=== PATIENT | male | born 1935 | race Caucasian/White ===

== ENCOUNTER 2016-05-29 08:15 | Inpatient (IN) | payer OTHER ==
[~2016-05-29] VITALS: Ht 190.5 cm; Wt 109.8 kg
--- NOTE | 2016-05-29 09:27 | ED NURSING NOTES ---
Clinical Report - Nurses [facility] [address] [place] [address] 05/29/2016 8:19 [id number] Triage time 08:25. Acuity: LEVEL 3. Chief Complaint: FALL while walking; tripped (Left Hip). 08:27 05/29/16. 08:27 05/29/16. Alert. No acute distress. SEPSIS SCREEN: Sepsis Screen. Negative (no infection suspected/documented). NICK COMA SCORE: [place] Coma Scale: 15- eyes open spontaneously (4); best verbal response- oriented x 4 (5); best motor response- obeys commands (6). --08:33 Jv Morrow R.N. 08:30 05/29/16. BP: 157/75. HR: 92. RR: 18. O2 saturation: 97% on room air. Temp: 98.1 F (oral). Pain level now: 06/01. --08:33 Jv Morrow R.N. Weight: 113.3 kg stated. Height/Length: 75 inches Per Patient. BMI: 31.2. --08:28 Jv Morrow R.N. Medications Atenolol Oral 25 mg, 3x a day. Lisinopril Oral 5 mg, daily, 4 tabs by mouth daily. --08:33 Jv Morrow R.N. Aleve. ASA Oral 325 mg PO q day. Tamsulosin HCl Oral 0.4 mg, 2x a day. --08:33 Jv Morrow R.N. Furosemide Oral 60mg, daily. --09:40 Jv Morrow R.N. Vitamin D3 Oral (Tablet 1000 unit) 2 tablets, daily, 2000 units daily. --09:41 Jv Morrow R.N. Vitamin E Oral (Capsule 400 unit) 1 capsule, daily. --09:44 Jv Morrow R.N. The following entry was struck and corrected by Jv Morrow R.N., 09:40 (05/29/16) Reason for correction - other(correction). <<STRICKEN ENTRY-- Lisinopril Oral 5 mg, daily. --08:33 Jv Morrow R.N. --END STRIKE>> The following entry was struck and corrected by Jv Morrow R.N., 09:40 (05/29/16) Reason for correction - other(correction). <<STRICKEN ENTRY-- Atenolol Oral 25 mg, daily. --08:33 Jv Morrow R.N. --END STRIKE>>. Medication/allergy information source: the patient and EMS. --08:33 Jv Morrow R.N. Allergies Lorazepam. (Hallucinations) --09:52 Jv Morrow R.N. The following entry was struck by Jv Morrow R.N., 09:53 (05/29/16) Reason - other. <<STRICKEN ENTRY-- Anti anx. pill caused halluciations. --08:33 Jv Morrow R.N. --END STRIKE>>. History Arrived by EMS. Historian: patient. Unaccompanied. Primary physician (FERNANDO ESCOTO). 08:27 05/29/16. This occurred yesterday. He has had extremity pain (Left hip pain). No loss of consciousness. No alteration in mental status or neck pain. Treatment BILL POSTER INSTALLER: None. Trauma activation: Pre-hospital notification of patient arrival was not received. PAST MEDICAL HX: Tetanus status: up-to-date. Immunizations not up to date. SOCIAL HX: No alcohol use or drug use. No infectious disease exposure. ABUSE ASSESSMENT: No report of abuse. NUTRITIONAL RISK ASSESSMENT: The nutritional risk assessment revealed no deficiencies. FUNCTIONAL ASSESSMENT: Functional assessment: no impairments noted. LEARNING NEEDS ASSESSMENT: The learning needs assessment revealed no barriers. FALL RISK ASSESSMENT: Fall risk assessment completed. Risk factors identified include severe pain and patient age greater than 65 years and history of fall. Fall interventions initiated. Side rails up x2. Brakes on Bed in low position. Patient visible from nurses' station. SKIN INTEGRITY ASSESSMENT: Skin integrity risk assessment completed. No skin integrity risk identified. --08:33 Jv Morrow R.N. Treatment BILL POSTER INSTALLER: See EMS report. BP: 150 / 86. HR: 82 regular. RR: 18. O2 saturation: 96 % room air. 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 Lives in house with . History of right hip fracture.). NICK COMA SCORE: [place] Coma Scale: 15- eyes open spontaneously (4); best verbal response- oriented x 4 (5); best motor response- obeys commands (6). --08:44 Jv Morrow R.N. PROBLEMS: Arthritis. Atrial Fibrillation. Meniere's Syndrome. Hypokalemia. Hypertension. Hypernatremia. ELEM. --08:33 Jv Morrow R.N. CKD. Fatty Liver. Deaf. Right Femoral Neck fracture. Venous Insufficiency, Lower Extremity. PVD. --09:53 Jv Morrow R.N. ADDITIONAL SURGERIES: Hip Surgery. Knee Prosthesis. Knee Surgery. Left index finger partial amputation. Mastoidectomy. Right hip. Right knee. --08:34 Jv Morrow R.N. Right Cornea Transplant. --09:53 Jv Morrow R.N. Assessment 08:27 05/29/16. --08:33 Jv Morrow R.N. Interventions 08:27 05/29/16. 08:27 05/29/16. ID and allergy band on patient. To treatment room. --08:33 Jv Morrow R.N. PHYSICAL ASSESSMENT To room via stretcher. GENERAL / NEURO / PSYCH: Alert. Oriented X 4. Appears in pain. RESPIRATORY: Respirations not labored. CVS: Capillary refill less than 2 seconds. EXTREMITIES: Extremity pulses are within normal limits. Left hip: tenderness. ( No deformity noted left LE). SKIN: Skin is warm and dry. --08:34 Jv Morrow R.N. NURSING PROGRESS NOTES 08:34 05/29/16. The plan of care for this patient has been created. Cold pack applied. Patient gowned. Reassurance given. Two patient identifiers checked. Call light placed in reach. Side rails up x 2. Bed placed in lowest position. Brakes of bed on. Brakes of chair on. --08:34 Jv Morrow R.N. 08:34 05/29/16. Patient ready for evaluation- chart flagged and notification provided. --08:34 Jv Morrow R.N. 08:41 05/29/2016 Percocet (Oxycodone-Acetaminophen) PO 5/325 mg Tablets 1 tab given. Allergies verified, confirmed 5 rights and sedative warning given to the patient. --08:41 Jv Morrow R.N. 08:42 05/29/16. BP: 160/80. HR: 78. RR: 12. O2 saturation: 99% on room air. --08:42 Jv Morrow R.N. 08:42 05/29/16. --08:42 Jv Morrow R.N. 08:42 05/29/16. ( Assisted pt to void, 250 mLs lea urine). --08:42 Jv Morrow R.N. 08:43 05/29/16. Patient ID band checked for patient name and birthdate. Clean catch urine collected with return of lea-colored urine; sample sent to lab for urinalysis and culture. Specimen labeled in the presence of the patient. --08:43 Jv Morrow R.N. 08:49 05/29/16. ( Office to fax current meds to ER). --08:50 Jv Morrow R.N. 09:13 05/29/2016 Site #1 started via IV in the right antecubital space with an 18g angiocath, with aseptic technique and good blood return; one attempt. Blood drawn: rainbow set. Labeled in the presence of the patient and sent to the lab. Saline lock flushed with 10 mL saline (blood banded as well). --09:13 Jv Morrow R.N. 09:31 05/29/16. Critical value relayed to ED by Slim. Critical value received by Jv Morrow RN. WBC: 30.3. ED physician and charge nurse notifed of critical value. --09:31 Jv Morrow R.N. 09:32 05/29/16. ( Dr Jiménez and FRANKY MD at bedside talking with patient). --09:32 Jv Morrow R.N. 09:32 05/29/16. --09:32 Jv Morrow R.N. 09:32 05/29/16. BP: 148/78. HR: 80. RR: 16. O2 saturation: 98% on room air. --09:32 Jv Morrow R.N. 10:17 05/29/16. --10:17 Jv Morrow R.N. 10:16 05/29/16. BP: 155/72. HR: 82. RR: 14. O2 saturation: 98% on room air. Temp: 98.1 F (oral). --10:17 Jv Morrow R.N. 10:20 05/29/16. ( Bed will be ready at 1120, room 205). --10:20 Jv Morrow R.N. 11:29 05/29/16. ( Ortho MD at bedside, at bedside, updated on POC and pts status). --11:29 Jv Morrow R.N. DISPOSITION / DISCHARGE 10:20 05/29/16. Patient's personal items include, pants, shirt, no money, no weapons, no meds. --10:20 Jv Morrow R.N. 11:24 05/29/2016 Site #[address] upon admission; patent and no signs of infection. Good blood return present. --11:24 Jv Morrow R.N. 11:25 05/29/16. The goals identified in the patient's plan of care were met. FALL RISK ASSESSMENT: Fall risk assessment completed. No fall risk identified. --11:25 Jv Morrow R.N. 11:24 05/29/16. BP: 146/78. HR: 81. RR: 14. O2 saturation: 99% on room air. Temp: 98.2 F (oral). Pain level now: 07/02. --11:25 Jv Morrow R.N. 11:56 05/29/16. Departure time: 11:56. --11:56 Jv Morrow R.N. late entry -11:56. --12:16 Jv Morrow R.N. 12:16 05/29/16. Pain level now: 07/02. --12:16 Jv Morrow R.N. Locked/Released at 05/29/2016 12:17 by Jv Morrow R.N.
--- NOTE | 2016-05-29 09:27 | ED ORDER SUMMARY ---
..... Patient: GISELLE SESAY OrderSheet [facility] VisitID: [id number] [address] [place] [address] 80y, M Registration Date/Time: 05/29/2016 ORDER SHEET Weight: 113.3 kg (stated) Allergies: Lorazepam GENERAL ORDERS: Hip 2V Left w AP Pelvis Urgent (08:30 05/29/2016 Mali Lujan) (Ack 8:32 Jimmie) (9:12 JBoardley R.N.) UA-Culture if indicated Urgent (08:43 05/29/2016 JBoardley R.N. per protocol) (8:45 JBoardley R.N.) CBC w Diff Urgent (09:04 05/29/2016 Mali Lujan) (9:12 JBoardley R.N.) CMP Urgent (09:04 05/29/2016 Mali Lujan) (9:12 JBoardley R.N.) NPO (09:04 05/29/2016 Mali Lujan) (9:12 JBoardley R.N.) Consult - Ortho (09:04 05/29/2016 Mali Lujan) (9:14 JBoardley R.N.) PT with INR Urgent (09:12 05/29/2016 JBoardley R.N. per protocol) (9:12 JBoardley R.N.) PTT Urgent (09:12 05/29/2016 JBoardley R.N. per protocol) (9:12 JBoardley R.N.) - (SCD's Bilat LE) (09:17 05/29/2016 JBoardley R.N. per protocol) (9:17 JBoardley R.N.) MEDICATION ORDERS: Percocet PO 5/325 mg (HIGH ALERT MEDICATION, NOW) (08:29 05/29/2016 Mali Lujan) (Ack 8:34 JBoardley R.N.) (8:41 JBoardley R.N.) IV FLUIDS: IV Saline Lock (09:12 05/29/2016 SHARIFAoarrosaura R.N. per protocol) (9:13 JBoardley R.N.) ORDER SHEET NOTES: [Electronically signed by Jv Morrow R.N. (12:05/29/2016)] [Electronically signed by Calixto Low Dr. (07:06 06/03/2016)] [Electronically locked/signed by Jv Morrow R.N. (12:05/29/2016)]
--- NOTE | 2016-05-29 09:27 | ED ORDER SUMMARY ---
..... Patient: GISELLE SESAY OrderSheet VisitID: [id number] [address] [place] [address] 80y, M Registration Date/Time: 05/29/2016 ORDER SHEET Weight: 113.3 kg (stated) Allergies: Lorazepam GENERAL ORDERS: Hip 2V Left w AP Pelvis Urgent (08:30 05/29/2016 Mali Lujan) (Ack 8:32 Jimmie) (9:12 JBoardley R.N.) UA-Culture if indicated Urgent (08:43 05/29/2016 JBoardley R.N. per protocol) (8:45 JBoardley R.N.) CBC w Diff Urgent (09:04 05/29/2016 Mali Lujan) (9:12 JBoardley R.N.) CMP Urgent (09:04 05/29/2016 Mali Lujan) (9:12 JBoardley R.N.) NPO (09:04 05/29/2016 Mali Lujan) (9:12 JBoardley R.N.) Consult - Ortho (09:04 05/29/2016 Mali Lujan) (9:14 JBoardley R.N.) PT with INR Urgent (09:12 05/29/2016 JBoardley R.N. per protocol) (9:12 JBoardley R.N.) PTT Urgent (09:12 05/29/2016 JBoardley R.N. per protocol) (9:12 JBoardley R.N.) - (SCD's Bilat LE) (09:17 05/29/2016 JBoardley R.N. per protocol) (9:17 JBoardley R.N.) MEDICATION ORDERS: Percocet PO 5/325 mg (HIGH ALERT MEDICATION, NOW) (08:29 05/29/2016 Mali Lujan) (Ack 8:34 JBoardley R.N.) (8:41 JBoardley R.N.) IV FLUIDS: IV Saline Lock (09:12 05/29/2016 SHARIFAoarrosaura R.N. per protocol) (9:13 JBoardley R.N.) ORDER SHEET NOTES: [Electronically signed by Jv Morrow R.N. (12:05/29/2016)] [Electronically signed by Calixto Low Dr. (07:06 06/03/2016)] [Electronically locked/signed by Jv Morrow R.N. (12:05/29/2016)]
--- NOTE | 2016-05-29 09:27 | ED NURSING NOTES ---
Clinical Report - Nurses [facility] [address] [place] [address] 05/29/2016 8:19 [id number] Triage time 08:25. Acuity: LEVEL 3. Chief Complaint: FALL while walking; tripped (Left Hip). 08:27 05/29/16. 08:27 05/29/16. Alert. No acute distress. SEPSIS SCREEN: Sepsis Screen. Negative (no infection suspected/documented). NICK COMA SCORE: [place] Coma Scale: 15- eyes open spontaneously (4); best verbal response- oriented x 4 (5); best motor response- obeys commands (6). --08:33 Jv Morrow R.N. 08:30 05/29/16. BP: 157/75. HR: 92. RR: 18. O2 saturation: 97% on room air. Temp: 98.1 F (oral). Pain level now: 06/01. --08:33 Jv Morrow R.N. Weight: 113.3 kg stated. Height/Length: 75 inches Per Patient. BMI: 31.2. --08:28 Jv Morrow R.N. Medications Atenolol Oral 25 mg, 3x a day. Lisinopril Oral 5 mg, daily, 4 tabs by mouth daily. --08:33 Jv Morrow R.N. Aleve. ASA Oral 325 mg PO q day. Tamsulosin HCl Oral 0.4 mg, 2x a day. --08:33 Jv Morrow R.N. Furosemide Oral 60mg, daily. --09:40 Jv Morrow R.N. Vitamin D3 Oral (Tablet 1000 unit) 2 tablets, daily, 2000 units daily. --09:41 Jv Morrow R.N. Vitamin E Oral (Capsule 400 unit) 1 capsule, daily. --09:44 Jv Morrow R.N. The following entry was struck and corrected by Jv Morrow R.N., 09:40 (05/29/16) Reason for correction - other(correction). <<STRICKEN ENTRY-- Lisinopril Oral 5 mg, daily. --08:33 Jv Morrow R.N. --END STRIKE>> The following entry was struck and corrected by Jv Morrow R.N., 09:40 (05/29/16) Reason for correction - other(correction). <<STRICKEN ENTRY-- Atenolol Oral 25 mg, daily. --08:33 Jv Morrow R.N. --END STRIKE>>. Medication/allergy information source: the patient and EMS. --08:33 Jv Morrow R.N. Allergies Lorazepam. (Hallucinations) --09:52 Jv Morrow R.N. The following entry was struck by Jv Morrow R.N., 09:53 (05/29/16) Reason - other. <<STRICKEN ENTRY-- Anti anx. pill caused halluciations. --08:33 Jv Morrow R.N. --END STRIKE>>. History Arrived by EMS. Historian: patient. Unaccompanied. Primary physician (FERNANDO ESCOTO). 08:27 05/29/16. This occurred yesterday. He has had extremity pain (Left hip pain). No loss of consciousness. No alteration in mental status or neck pain. Treatment MERCURY PURIFIER: None. Trauma activation: Pre-hospital notification of patient arrival was not received. PAST MEDICAL HX: Tetanus status: up-to-date. Immunizations not up to date. SOCIAL HX: No alcohol use or drug use. No infectious disease exposure. ABUSE ASSESSMENT: No report of abuse. NUTRITIONAL RISK ASSESSMENT: The nutritional risk assessment revealed no deficiencies. FUNCTIONAL ASSESSMENT: Functional assessment: no impairments noted. LEARNING NEEDS ASSESSMENT: The learning needs assessment revealed no barriers. FALL RISK ASSESSMENT: Fall risk assessment completed. Risk factors identified include severe pain and patient age greater than 65 years and history of fall. Fall interventions initiated. Side rails up x2. Brakes on Bed in low position. Patient visible from nurses' station. SKIN INTEGRITY ASSESSMENT: Skin integrity risk assessment completed. No skin integrity risk identified. --08:33 Jv Morrow R.N. Treatment MERCURY PURIFIER: See EMS report. BP: 150 / 86. HR: 82 regular. RR: 18. O2 saturation: 96 % room air. ( GLF yesterday, tripped over a coat bag hanger. Lives in house with . History of right hip fracture.). NICK COMA SCORE: [place] Coma Scale: 15- eyes open spontaneously (4); best verbal response- oriented x 4 (5); best motor response- obeys commands (6). --08:44 Jv Mororw R.N. PROBLEMS: Arthritis. Atrial Fibrillation. Meniere's Syndrome. Hypokalemia. Hypertension. Hypernatremia. MARSHALL. --08:33 Jv Morrow R.N. CKD. Fatty Liver. Deaf. Right Femoral Neck fracture. Venous Insufficiency, Lower Extremity. PVD. --09:53 Jv Morrow R.N. ADDITIONAL SURGERIES: Hip Surgery. Knee Prosthesis. Knee Surgery. Left index finger partial amputation. Mastoidectomy. Right hip. Right knee. --08:34 Jv Morrow R.N. Right Cornea Transplant. --09:53 Jv Morrow R.N. Assessment 08:27 05/29/16. --08:33 Jv Morrow R.N. Interventions 08:27 05/29/16. 08:27 05/29/16. ID and allergy band on patient. To treatment room. --08:33 Jv Morrow R.N. PHYSICAL ASSESSMENT To room via stretcher. GENERAL / NEURO / PSYCH: Alert. Oriented X 4. Appears in pain. RESPIRATORY: Respirations not labored. CVS: Capillary refill less than 2 seconds. EXTREMITIES: Extremity pulses are within normal limits. Left hip: tenderness. ( No deformity noted left LE). SKIN: Skin is warm and dry. --08:34 Jv Morrow R.N. NURSING PROGRESS NOTES 08:34 05/29/16. The plan of care for this patient has been created. Cold pack applied. Patient gowned. Reassurance given. Two patient identifiers checked. Call light placed in reach. Side rails up x 2. Bed placed in lowest position. Brakes of bed on. Brakes of chair on. --08:34 Jv Morrow R.N. 08:34 05/29/16. Patient ready for evaluation- chart flagged and notification provided. --08:34 Jv Morrow R.N. 08:41 05/29/2016 Percocet (Oxycodone-Acetaminophen) PO 5/325 mg Tablets 1 tab given. Allergies verified, confirmed 5 rights and sedative warning given to the patient. --08:41 Jv Morrow R.N. 08:42 05/29/16. BP: 160/80. HR: 78. RR: 12. O2 saturation: 99% on room air. --08:42 Jv Morrow R.N. 08:42 05/29/16. --08:42 Jv Morrow R.N. 08:42 05/29/16. ( Assisted pt to void, 250 mLs lea urine). --08:42 Jv Morrow R.N. 08:43 05/29/16. Patient ID band checked for patient name and birthdate. Clean catch urine collected with return of lea-colored urine; sample sent to lab for urinalysis and culture. Specimen labeled in the presence of the patient. --08:43 Jv Morrow R.N. 08:49 05/29/16. ( Office to fax current meds to ER). --08:50 Jv Morrow R.N. 09:13 05/29/2016 Site #1 started via IV in the right antecubital space with an 18g angiocath, with aseptic technique and good blood return; one attempt. Blood drawn: rainbow set. Labeled in the presence of the patient and sent to the lab. Saline lock flushed with 10 mL saline (blood banded as well). --09:13 Jv Morrow R.N. 09:31 05/29/16. Critical value relayed to ED by Slim. Critical value received by Jv Morrow RN. WBC: 30.3. ED physician and charge nurse notifed of critical value. --09:31 Jv Morrow R.N. 09:32 05/29/16. ( Dr Jiménez and FRANKY MD at bedside talking with patient). --09:32 Jv Morrow R.N. 09:32 05/29/16. --09:32 Jv Morrow R.N. 09:32 05/29/16. BP: 148/78. HR: 80. RR: 16. O2 saturation: 98% on room air. --09:32 Jv Morrow R.N. 10:17 05/29/16. --10:17 Jv Morrow R.N. 10:16 05/29/16. BP: 155/72. HR: 82. RR: 14. O2 saturation: 98% on room air. Temp: 98.1 F (oral). --10:17 Jv Morrow R.N. 10:20 05/29/16. ( Bed will be ready at 1120, room 205). --10:20 Jv Morrow R.N. 11:29 05/29/16. ( Ortho MD at bedside, at bedside, updated on POC and pts status). --11:29 Jv Morrow R.N. DISPOSITION / DISCHARGE 10:20 05/29/16. Patient's personal items include, pants, shirt, no money, no weapons, no meds. --10:20 Jv Morrow R.N. 11:24 05/29/2016 Site #[address] upon admission; patent and no signs of infection. Good blood return present. --11:24 Jv Morrow R.N. 11:25 05/29/16. The goals identified in the patient's plan of care were met. FALL RISK ASSESSMENT: Fall risk assessment completed. No fall risk identified. --11:25 Jv Morrow R.N. 11:24 05/29/16. BP: 146/78. HR: 81. RR: 14. O2 saturation: 99% on room air. Temp: 98.2 F (oral). Pain level now: 07/02. --11:25 Jv Morrow R.N. 11:56 05/29/16. Departure time: 11:56. --11:56 Jv Morrow R.N. late entry -11:56. --12:16 Jv Morrow R.N. 12:16 05/29/16. Pain level now: 07/02. --12:16 Jv Morrow R.N. Locked/Released at 05/29/2016 12:17 by Jv Morrow R.N.
--- NOTE | 2016-05-29 09:27 | ED CLINICAL REPORT ---
Clinical Report - Physicians/Mid Levels [facility] [address] [place] [address] 05/29/2016 8:19 Patient: GISELLE SESAY Time Seen: 0822. Arrived- By private vehicle. Historian- patient and EMS personnel. HISTORY OF PRESENT ILLNESS Chief Complaint: LEFT HIP INJURY. The patient also (none). The injury occurred last night. Occurred at home. Fell (tripped over coat card hanger). The patient complains of moderate pain. No blow to the head, neck pain, loss of consciousness or seizure. Not dazed. REVIEW OF SYSTEMS No numbness, hearing loss, headache, loss of vision or chest pain. No depression, weakness, abdominal pain, nausea or difficulty breathing. No bladder dysfunction, laceration, fever or vomiting. Has not recently been ill. All systems otherwise negative, except as recorded above. PAST HISTORY See nurses notes. Tetanus immunization status is up-to-date. SOCIAL HISTORY No alcohol use or drug use. No recent travel. Is a local resident. ADDITIONAL NOTES The nursing notes have been reviewed. PHYSICAL EXAM Appearance: Alert. Oriented X3. No acute distress. Head: Head non-tender. No swelling of head. No Sellers's sign or raccoon eyes. Eyes: Pupils equal, round and reactive to light. Pupillary exam: Right pupil round and reactive to light directly and consensually and with accommodation. Left pupil: 3mm, round and reactive to light directly and consensually and with accommodation. EOM intact. (glasses). ENT: No dental injury. Neck: No decreased ROM or muscle spasm in the neck. No pain with movement of head/neck. Painless ROM. Non-tender. No vertebral tenderness. CVS: Heart sounds normal. Pulses normal. Respiratory: Breath sounds normal. Chest nontender. Abdomen: No visible injury. Soft and nontender. Bowel sounds normal. Back: Back tenderness present. Abnormal ROM. Skin: Skin intact. Skin warm and dry. Normal skin color. Normal skin turgor. Extremities: Normal inspection. Pelvis stable. (increased pain with logrolling of the left lower extremity at the hip. Nontender to palpation. No bony abnormalities. No overlying skin changes. Neurovascularly intact distally. No back tenderness. The bilateral knees have well-healing anterior Linear surgical scars. Compartments are soft. Chronic overlying skin changes of poor circulation noted to the lower Extremities bilaterally and symmetrical. Extend from the mid young down to the feet.). Neuro: Lansford Coma Scale: 15- eyes open spontaneously (4); best verbal response- oriented x 3 (5); best motor response- obeys commands (6). Oriented X 3. No motor deficit. No sensory deficit. LABS, X-RAYS, AND EKG Lt Hip X-ray: (proximal surgical neck fracture). Views: 2 view hip series. Technique: good. The X-rays were independently viewed by me and interpreted contemporaneously by me. Laboratory Tests: CBC w Diff: (VALERIE: 06/01/2016 05:25) ( MsgRcvd 06/01/2016 06:31) Final results Test Result Flag Units (Reference) WHITE BLOOD COUNT 26.0 *H K/uL (4.5-11.5) CRITICAL RESULTS CALLEDCalled to LASHAWN GRANT RN 06/01/16 0550Were 2 patient identifiers used? YWas the result read back? Y RED BLOOD COUNT 3.42 L M/uL (4.50-5.90) HEMOGLOBIN 10.7 L gm/dL (13.5-17.5) HEMATOCRIT 32.6 L % (41.0-53.0) MEAN CELL VOLUME 95 fL (80-100) MEAN CORPUSCULAR HGB 31 pg (26-34) MEAN CORPUSCULAR HGB CONC 33 g/dL (31-37) RED CELL DISTRIBUTION WIDTH 15.2 H % (11.6-14.8) PLATELET COUNT 79 L K/uL (150-400) NEUTROPHIL % 14.6 L % (50-75) LYMPH % 76.5 H % (25-40) MONO % 5.3 % (3-14) EOSINOPHIL % 3.5 % (0-4) BASOPHIL % 0.1 % (0-2) POLY % 11 L % (50-75) BAND % 3 % (0-8) LYMPH 82 H % (25-40) MONO 0 L % (3-14) EOSINOPHIL % 4 % (0-4) BASOPHIL % 0 % (0-2) METAMYELOCYTE % 0 % (0-1) MYELOCYTE 0 % (0-1) OTHER CELL TYPE 0 HYPOCHROMIA 1+ ANISOCYTOSIS 1+ OCT COMMENT VARIANT LYMPHS CBC w Diff: (VALERIE: 05/31/2016 05:05) ( ArgRcvd 05/31/2016 06:02) Final results Test Result Flag Units (Reference) WHITE BLOOD COUNT 25.6 *H K/uL (4.5-11.5) CRITICAL RESULTS CALLEDCalled to ROX GRANT RN 05/31/16 0524Were 2 patient identifiers used? YWas the result read back? Y RED BLOOD COUNT 3.50 L M/uL (4.50-5.90) HEMOGLOBIN 10.9 L gm/dL (13.5-17.5) HEMATOCRIT 33.4 L % (41.0-53.0) MEAN CELL VOLUME 96 fL (80-100) MEAN CORPUSCULAR HGB 31 pg (26-34) MEAN CORPUSCULAR HGB CONC 33 g/dL (31-37) RED CELL DISTRIBUTION WIDTH 15.2 H % (11.6-14.8) PLATELET COUNT 80 L K/uL (150-400) NEUTROPHIL % 19.2 L % (50-75) LYMPH % 72.7 H % (25-40) MONO % 4.7 % (3-14) EOSINOPHIL % 3.2 % (0-4) BASOPHIL % 0.2 % (0-2) POLY % 15 L % (50-75) BAND % 1 % (0-8) LYMPH 80 H % (25-40) MONO 0 L % (3-14) EOSINOPHIL % 4 % (0-4) BASOPHIL % 0 % (0-2) METAMYELOCYTE % 0 % (0-1) MYELOCYTE 0 % (0-1) OTHER CELL TYPE 0 ANISOCYTOSIS 1+ OCT COMMENT VARIANT LYMPHS CMP: (VALERIE: 05/31/2016 05:05) ( MsgRcvd 05/31/2016 05:33) Final results Test Result Flag Units (Reference) GLUCOSE 97 mg/dL (70-110) BUN 31 H mg/dL (7-18) CREATININE 1.2 mg/dL (0.6-1.3) Estimated GFR >60 mL/min Estimated GFR- >60 mL/min Note: Persistent reduction over 3 months in eGFR<60 mL/min/1.73 m2 defines CKD. Patients with eGFR values>=60 mL/min/1.73 m2 may also have CKD if evidence ofpersistent proteinuria. Additional information may be foundat [email or web address]. SODIUM 140 mmol/L (136-145) POTASSIUM 4.3 mmol/L (3.5-5.1) CHLORIDE 107 mmol/L (98-107) CARBON DIOXIDE 24 mmol/L (21-32) CALCIUM 8.2 L mg/dL (8.5-10.1) TOTAL PROTEIN 5.5 L g/dL (6.4-8.2) ALBUMIN 2.8 L g/dL (3.3-5.0) BILIRUBIN, TOTAL 1.0 mg/dL (0.0-1.0) ALKALINE PHOSPHATASE 54 U/L (46-116) AST (SGOT) 13 L U/L (15-37) ALT (SGPT) 13 U/L (12-78) CBC w Diff: (VALERIE: 05/30/2016 19:25) ( MsgRcvd 05/30/2016 20:16) Final results Test Result Flag Units (Reference) WHITE BLOOD COUNT 28.4 *H K/uL (4.5-11.5) CRITICAL RESULTS CALLEDCalled to [facility] 05/30/161941Were 2 patient identifiers used? YWas the result read back? Y RED BLOOD COUNT 3.65 L M/uL (4.50-5.90) HEMOGLOBIN 11.5 L gm/dL (13.5-17.5) HEMATOCRIT 34.9 L % (41.0-53.0) MEAN CELL VOLUME 96 fL (80-100) MEAN CORPUSCULAR HGB 32 pg (26-34) MEAN CORPUSCULAR HGB CONC 33 g/dL (31-37) RED CELL DISTRIBUTION WIDTH 15.1 H % (11.6-14.8) PLATELET COUNT 80 L K/uL (150-400) POLY % 24 L % (50-75) BAND % 0 % (0-8) LYMPH 71 H % (25-40) MONO 1 L % (3-14) EOSINOPHIL % 4 % (0-4) BASOPHIL % 0 % (0-2) METAMYELOCYTE % 0 % (0-1) MYELOCYTE 0 % (0-1) OTHER CELL TYPE 0 ELMER CELLS 1+ CBC w Diff: (VALERIE: 05/30/2016 05:20) ( [facility] [place] Final results Test Result Flag Units (Reference) WHITE BLOOD COUNT 25.5 *H K/uL (4.5-11.5) CRITICAL RESULTS CALLEDCalled to STEWART GRANT RN 05/30/16 0538Were 2 patient identifiers used? YWas the result read back? Y RED BLOOD COUNT 3.58 L M/uL (4.50-5.90) HEMOGLOBIN 11.2 L gm/dL (13.5-17.5) HEMATOCRIT 34.0 L % (41.0-53.0) MEAN CELL VOLUME 95 fL (80-100) MEAN CORPUSCULAR HGB 31 pg (26-34) MEAN CORPUSCULAR HGB CONC 33 g/dL (31-37) RED CELL DISTRIBUTION WIDTH 15.6 H % (11.6-14.8) PLATELET COUNT 78 L K/uL (150-400) NEUTROPHIL % 31.5 L % (50-75) LYMPH % 63.3 H % (25-40) MONO % 3.9 % (3-14) EOSINOPHIL % 0.8 % (0-4) BASOPHIL % 0.5 % (0-2) POLY % 23 L % (50-75) BAND % 7 % (0-8) LYMPH 68 H % (25-40) MONO 0 L % (3-14) EOSINOPHIL % 2 % (0-4) BASOPHIL % 0 % (0-2) METAMYELOCYTE % 0 % (0-1) MYELOCYTE 0 % (0-1) OTHER CELL TYPE 0 ANISOCYTOSIS 1+ BMP: (VALERIE: 05/30/2016 19:25) ( [facility] [place] 19:49) Final results Test Result Flag Units (Reference) GLUCOSE 103 mg/dL (70-110) BUN 35 H mg/dL (7-18) CREATININE 1.4 H mg/dL (0.6-1.3) Estimated GFR 51.57 mL/min Estimated GFR- >60 mL/min Note: Persistent reduction over 3 months in eGFR<60 mL/min/1.73 m2 defines CKD. Patients with eGFR values>=60 mL/min/1.73 m2 may also have CKD if evidence ofpersistent proteinuria. Additional information may be foundat [email or web address]. SODIUM 138 mmol/L (136-145) POTASSIUM 4.6 mmol/L (3.5-5.1) CHLORIDE 102 mmol/L (98-107) CARBON DIOXIDE 28 mmol/L (21-32) CALCIUM 8.1 L mg/dL (8.5-10.1) CMP: (VALERIE: 05/30/2016 05:20) ( MsgRcvd 05/30/2016 05:58) Final results Test Result Flag Units (Reference) GLUCOSE 114 H mg/dL (70-110) BUN 29 H mg/dL (7-18) CREATININE 1.5 H mg/dL (0.6-1.3) Estimated GFR 47.62 mL/min Estimated GFR- 57.72 mL/min Note: Persistent reduction over 3 months in eGFR<60 mL/min/1.73 m2 defines CKD. Patients with eGFR values>=60 mL/min/1.73 m2 may also have CKD if evidence ofpersistent proteinuria. Additional information may be foundat [email or web address]. SODIUM 141 mmol/L (136-145) POTASSIUM 4.6 mmol/L (3.5-5.1) CHLORIDE 106 mmol/L (98-107) CARBON DIOXIDE 27 mmol/L (21-32) CALCIUM 8.2 L mg/dL (8.5-10.1) TOTAL PROTEIN 5.5 L g/dL (6.4-8.2) ALBUMIN 2.9 L g/dL (3.3-5.0) BILIRUBIN, TOTAL 1.9 H mg/dL (0.0-1.0) ALKALINE PHOSPHATASE 55 U/L (46-116) AST (SGOT) 15 U/L (15-37) ALT (SGPT) 16 U/L (12-78) MAGNESIUM 2.0 mg/dL (1.8-2.4) UA-Culture if indicated: (VALERIE: 05/29/2016 08:45) ( MsgRcvd 05/29/2016 09:06) Final results Test Result Flag Units (Reference) URINE COLOR YELLOW URINE APPEARANCE CLEAR URINE GLUCOSE NEGATIVE (NEGATIVE) URINE BILIRUBIN NEGATIVE (NEGATIVE) URINE KETONE NEGATIVE (NEGATIVE) URINE SPECIFIC GRAVITY 1.020 (1.010-1.030) URINE PH 6.0 (5.0-8.0) URINE PROTEIN TRACE (NEGATIVE) URINE UROBILINOGEN 0.2 EU/dL (0.2-1.0) URINE NITRITE POSITIVE (NEGATIVE) URINE BLOOD 3+ (NEGATIVE) URINE LEUK ESTERASE NEGATIVE (NEGATIVE) URINE RBC 3-5 rbc/hpf (0-1) URINE WBC 3-5 wbc/hpf (0-1) URINE EPITHELIAL CELLS 0-1 EPI/hpf (0-5) URINE BACTERIA MANY (4+) (NONE SEEN) URINE COMMENT CULTURE INDICATED URINE CULTURES ARE SET-UP BASED ON THE FOLLOWING CRITERIA:POSITIVE NITRITEPOSITIVE LEUKOCYTE ESTERASEGREATER THAN 10 WHITE BLOOD CELLSMODERATE (2+) OR GREATER BACTERIA CBC w Diff: (VALERIE: 05/29/2016 09:00) ( MsgRcvd 05/29/2016 10:00) Final results Test Result Flag Units (Reference) WHITE BLOOD COUNT 30.3 *H K/uL (4.5-11.5) CRITICAL RESULTS CALLEDCalled to IRVING WILKINS RN 05/29/16 0929Were 2 patient identifiers used? YWas the result read back? Y RED BLOOD COUNT 4.38 L M/uL (4.50-5.90) HEMOGLOBIN 13.8 gm/dL (13.5-17.5) HEMATOCRIT 41.8 % (41.0-53.0) MEAN CELL VOLUME 96 fL (80-100) MEAN CORPUSCULAR HGB 31 pg (26-34) MEAN CORPUSCULAR HGB CONC 33 g/dL (31-37) RED CELL DISTRIBUTION WIDTH 15.0 H % (11.6-14.8) PLATELET COUNT 98 L K/uL (150-400) POLY % 34 L % (50-75) BAND % 1 % (0-8) LYMPH 58 H % (25-40) MONO 7 % (3-14) EOSINOPHIL % 0 % (0-4) BASOPHIL % 0 % (0-2) METAMYELOCYTE % 0 % (0-1) MYELOCYTE 0 % (0-1) OTHER CELL TYPE 0 ANISOCYTOSIS 1+ OCT COMMENT RARE SMUDGE CELLS PT with INR: (VALERIE: 05/29/2016 09:00) ( [facility] [place] 09:34) Final results Test Result Flag Units (Reference) INR 1.2 (0.8-1.2) Low Intensity Therapy: INR 1.5-2.0 PT range 18.5-23.1Mod.Intensity Therapy: INR 2.0-3.0 PT range 23.1-31.5High Intensity Therapy: INR 2.5-3.5 PT range 27.4-35.5High Intensity Therapy 2: INR 3.0-4.0 PT range 31.5-39.3 APTT 31 SECONDS (24-34) CMP: (VALERIE: 05/29/2016 09:00) ( ArgRcvd 05/29/2016 09:44) Final results Test Result Flag Units (Reference) GLUCOSE 116 H mg/dL (70-110) BUN 24 H mg/dL (7-18) CREATININE 1.2 mg/dL (0.6-1.3) Estimated GFR >60 mL/min Estimated GFR- >60 mL/min Note: Persistent reduction over 3 months in eGFR<60 mL/min/1.73 m2 defines CKD. Patients with eGFR values>=60 mL/min/1.73 m2 may also have CKD if evidence ofpersistent proteinuria. Additional information may be foundat [email or web address]. SODIUM 143 mmol/L (136-145) POTASSIUM 4.6 mmol/L (3.5-5.1) CHLORIDE 106 mmol/L (98-107) CARBON DIOXIDE 27 mmol/L (21-32) CALCIUM 9.1 mg/dL (8.5-10.1) TOTAL PROTEIN 7.0 g/dL (6.4-8.2) ALBUMIN 3.7 g/dL (3.3-5.0) BILIRUBIN, TOTAL 3.4 H mg/dL (0.0-1.0) ALKALINE PHOSPHATASE 69 U/L (46-116) AST (SGOT) 23 U/L (15-37) ALT (SGPT) 19 U/L (12-78) Blood Culture: (VALERIE: 05/30/2016 19:53) ( [facility] [place]:59) IP Test Result Flag Units (Reference) CULTURE, BLOOD NO GROWTH AFTER 48 HOURS Blood Culture: (VALERIE: 05/30/2016 19:53) ( [facility] [place] 19:59) IP Test Result Flag Units (Reference) CULTURE, BLOOD NO GROWTH AFTER 48 HOURS Culture, Urine: (VALERIE: 05/29/2016 08:45) ( [facility] [place] 12:31) IP Test Result Flag Units (Reference) CULTURE, URINE DATE: 06/01/16 PRELIM REPORT: PRELIMINARY REPORT #3 -- SUSTAINABILITY PROJECT MANAGER QUANTITATIVE URINE GROWTH: 50,000 TO 100,000 CFU/mL ID AND SENS TO FOLLOW: SENSITIVITY TO FOLLOW -- MXD QUANTITATIVE URINE GROWTH: 10,000 TO 50,000 CFU/mL ID AND SENS TO FOLLOW: NO FURTHER WORKUP . PROGRESS AND PROCEDURES Course of Care: the patient is a pleasant 80-year-old male presenting for a virus and left-sided hip pain. Patient has no signs of infectious etiology for the discomfort. Patient's symptoms started sustaining a ground-level fall. No other areas of injury noted. No loss of consciousness. Patient states that he was trying to see if he could get through the day in t go to a doctor's appointment with his . Do not feel further imaging is warranted at this time. X-rays of the hip are ordered. Patient is neurovascularly intact. The leg does not appear to be shortened or rotated. Patient has not had any significant pain lying in bed. Patient reports that he only has significant amount of pain when trying to use the leg or with any movement. Workup shows patient to have a fracture of the surgical neck of the left femur. Patient will likely need surgical repair of the injury. Orthopedic surgery was called. The patient will be admitted to the hospital for further workup. Laboratory studies have been ordered in preparation for surgery. Hospitalist and orthopedic surgery will follow up on these laboratory studies. In speaking with orthopedic surgery, they recommended we speak to medicine to have the patient admitted. Spoke with the hospitalist who will help with the admission of the patient. No further recommendations made. Patient continues to be neurovascularly intact. Patient was admitted. prior to patient's departure from the emergency Department patient was noted to be resting in bed and in no acute distress. Patient is stable for floor level of admission. Of note, patient's note is being completed afterpatient has been dispositioned from the emergency department. Laboratory studies that were ordered after patient was dispositioned from the emergency department are noted on the patient's chart however I did not order any of these laboratory studies and was unaware of these lab tests. Because of the computer software, I am unable to only input the laboratory studies that I had ordered. Critical care performed (40 minutes). Time is exclusive of separately billable procedures. Time includes: direct patient care, patient reassessment, coordination of patient care, review of patient's medical records, medical consultation and documentation of patient care. Consult obtained from orthopedics. Disposition: Admitted to Acute Care. (Electronically signed by Calixto Low Dr. 06/03/2016 7:06)
--- NOTE | 2016-05-29 10:05 | DIAGNOSTIC IMAGING REPORT ---
PROCEDURE: XR HIP 2VW W W/O AP PELVIS-LT INDICATION: TRAUMA/INJURY TECHNIQUE: AP view of the pelvis and hips with lateral view of the left hip. COMPARISON: Pelvis and right hip x-ray 05/21/2010. FINDINGS: LEFT HIP: Impacted subcapital left hip fracture with minimal displacement. Mild left hip degenerative changes. PELVIS: Osteopenia. Right hip ORIF with 2 pins and evidence of complete healing. Soft tissues are unremarkable. IMPRESSION: 1. Left hip subcapital fracture 2. Osteopenia 3. Right hip ORIF
--- NOTE | 2016-05-29 11:53 | Preoperative Progress Note ---
Late Entry Date/Time Late Entry Date and Time LATE ENTRY Date of visit: Time of visit: Preop Note Details Current Status: Changes Other: CV Reviewed (He has a fracture of the left ), Respiratory Reviewed (hip), Review MILADY notes & Vitals (needs surgery to repair.)
[2016-05-29 12:21] VITALS: BP 153/82
[2016-05-29] MEDS ORDERED: ASPIRIN EC325 MG PO (13:24)
[2016-05-29] MEDS ORDERED: ALEVE220 MG PO (13:24)
[2016-05-29] MEDS ORDERED: ATENOLOL25 MG PO (13:25)
[2016-05-29] MEDS ORDERED: TAMSULOSIN HCL0.4 MG PO (13:26)
[2016-05-29] MEDS ORDERED: FUROSEMIDE40 MG PO (13:26)
[2016-05-29] MEDS ORDERED: LISINOPRIL5 MG PO (13:26)
[2016-05-29] MEDS ORDERED: VITAMIN E200 UNIT PO ×2 (13:27→13:29)
--- NOTE | 2016-05-29 14:12 | History & Physical Report ---
Admission Admit Date 05/29/16 Information Source Information Source: Self Reliability: Fair History Chief Complaint HIP PAIN History of Present Illness Patient is a 80 year old male that is presenting with left hip for one day. Patient had been in his usual state of health when he suffered a mechanical fall after tripping over a hangar. Patient claims that the hangar was embedded in the carpet and he was unable to see it. Patient denies any pre-existing problems that would have caused him to fall. Patient was brought to the ER because of continual hip pain and it was found that the patient has a left hip intra- trochanteric fracture. Patient additionally was seen to have a white blood cell count of 30 with a signficant urinalysis. Patient will additionally be treated for a UTI while here. Patient is otherwise stable and doing well. Patient History 1. Hip fracture, left 2. Urinary tract infection 3. Hypertension 4. Hearing loss 5. BPH (benign prostatic hyperplasia) Social History Patient lives at home with his . He performs all his ADLs indepentely. He does not smoke drink or use illicit substances. Family History Family history was reviewed; no changes noted. Medications and Allergies Medications Home Medications Atenolol 75 mg daily Lisinopril 20 mg daily Flomax Current Medications Sig/Montrell Start time Last Medication Dose Route Stop Time Status Admin Cefazolin Sodium/ 2 G NOW STA 05/29 1258 CAN Dextrose IV 05/29 1259 Acetaminophen 650 MG Q6H PRN 05/29 1030 AC PO Morphine Sulfate 1 MG Q30MIN PRN 05/29 1030 AC IV Sodium Chloride 1,000 ML ASDIRECTED 05/29 1030 AC IV Sodium Chloride 1,000 ML ASDIRECTED 05/29 0945 AC IV Morphine Sulfate See Dose Q4H PRN 05/29 0930 AC Insts (1) IV Ondansetron HCl 4 MG Q8H PRN 05/29 0930 AC IV Dose Instructions: (1)Morphine Sulfate: 2 - 4 MG Allergies Coded Allergies: Lorazepam (Intermediate, 05/29/16) HALLUCINATIONS Review of Systems Constitutional Denies: Fever, Chills, Sweats, Weakness, Malaise, Other. Eyes Denies: Pain, Vision Change, Conjunctival Inflammation, Eyelid Inflammation, Redness, Other. ENT Denies: Ear Pain, Ear Discharge, Nose Pain, Nasal Discharge, Nasal Congestion, Mouth Pain, Mouth Swelling, Throat Pain, Throat Swelling, Other. Respiratory Denies: Cough, Dry, SOB w/exertion, Wheezing, Hemoptysis, Pleuritic Pain, Sputum , Other. Cardiovascular Denies: Chest Pain, Palpitations, Orthopnea, PND, Edema, Light-headedness, Other. Gastrointestinal Denies: Nausea, Vomiting, Abdominal Pain, Diarrhea, Constipation, Melena, Hematochezia, Other. Genitourinary Denies: Dysuria, Frequency, Incontinence, Hematuria, Retention, Other. Musculoskeletal Leg Pain. Denies: Neck Pain, Shoulder Pain, Arm Pain, Back Pain, Hand Pain, Foot Pain, Other. Skin Denies: Rash, Lesions, Jaundice, Bruising, Other. Neurological Denies: Weakness, Numbness, Incoordination, Change in speech, Confusion, Seizures, Other. Physical Exam Vital Signs / I&Os Vital Signs Date Time Temp Pulse Resp B/P Pulse O2 O2 Flow FiO2 Ox Delivery Rate 05/29 1221 98.2 77 20 153/82 95 Room Air 0.0 General Appearance Alert, Oriented X3, No acute distress HEENT Normal exam, PERRLA, EOMI, Moist mucous membranes Lungs Clear to auscultation, Normal air movement Cardiovascular Normal exam, Normal S1 and S2, No murmurs, gallops, rubs Abdomen Soft, No tenderness, No guarding, No rebound, No masses Rectal No masses Extremities No edema, Normal pulses, No tenderness, tenderness to palpation of left hip Skin No Rashes, No Breakdown Neurological Normal speech, Normal tone, Sensation intact, Reflexes 2+ and equal , Cranial nerves intact, Strength 5/5 x4 ext's, No lateralizing signs Psych/Mental Status Mood normal LAB Results Laboratory Tests 05/29 05/29 0845 0900 Chemistry Plasma Sodium (136 - 145 mmol/L) 143 Plasma Potassium (3.5 - 5.1 mmol/L) 4.6 Plasma Chloride (98 - 107 mmol/L) 106 CO2 (Enzymatic) (21 - 32 mmol/L) 27 BUN (7 - 18 mg/dL) 24 Creatinine (0.6 - 1.3 mg/dL) 1.2 Est GFR ( Amer) (mL/min) >60 Est GFR (Non-Af Amer) (mL/min) >60 Glucose (70 - 110 mg/dL) 116 Plasma Calcium (8.5 - 10.1 mg/dL) 9.1 Total Bilirubin (0.0 - 1.0 mg/dL) 3.4 AST (15 - 37 U/L) 23 ALT (12 - 78 U/L) 19 Alkaline Phosphatase (46 - 116 U/L) 69 Total Protein (6.4 - 8.2 g/dL) 7.0 Albumin (3.3 - 5.0 g/dL) 3.7 Coagulation INR (0.8 - 1.2) 1.2 APTT (24 - 34 SECONDS) 31 Hematology WBC (4.5 - 11.5 K/uL) 30.3 RBC (4.50 - 5.90 M/uL) 4.38 Hgb (13.5 - 17.5 gm/dL) 13.8 Hct (41.0 - 53.0 %) 41.8 MCV (80 - 100 fL) 96 MCH (26 - 34 pg) 31 RDW (11.6 - 14.8 %) 15.0 Neut % (Auto) (50 - 75 %) 34 Lymph % (Auto) (25 - 40 %) 58 Jessamine % (Auto) (3 - 14 %) 7 Eos % (Auto) (0 - 4 %) 0 Baso % (Auto) (0 - 2 %) 0 Band Neutrophils % (0 - 8 %) 1 Metamyelocytes % (0 - 1 %) 0 Myelocytes (0 - 1 %) 0 Other Cell Type RARE SMUDGE CELLS Plt Count, EDTA (150 - 400 K/uL) 98 Anisocytosis (manual) 1+ PUBS MCHC (31 - 37 g/dL) 33 Urines Urine Color YELLOW Urine Appearance CLEAR Urine pH (5.0 - 8.0) 6.0 Ur Specific Eunice (1.010 - 1.030) 1.020 Urine Protein (NEGATIVE) TRACE Urine Ketones (NEGATIVE) NEGATIVE Urine Blood (NEGATIVE) 3+ Urine Nitrite (NEGATIVE) POSITIVE Urine Bilirubin (NEGATIVE) NEGATIVE Urine Urobilinogen (0.2 - 1.0 EU/dL) 0.2 Ur Leukocyte Esterase (NEGATIVE) NEGATIVE Urine RBC (0 - 1 rbc/hpf) 3-5 Urine WBC (0 - 1 wbc/hpf) 3-5 Ur Epithelial Cells (0 - 5 EPI/hpf) 0-1 Urine Bacteria (NONE SEEN) MANY (4+) Urine Glucose (NEGATIVE) NEGATIVE Urine Comment CULTURE INDICATED Microbiology Date/Time Procedure - Status Source Growth 03/07 0845 Urine Culture - RECD URINE CC Assessment and Plan Problem List 1. Hip fracture, left Plan - Pt will go for intratrochanteric fracture of the left femur - uncomplicated fracture with no soft tissue involvement and no evidence of hematoma - will follow up after surgery 2. Urinary tract infection Plan - pt has evidence of leukocytosis with positive urinalysis - pt does not have symptoms albeit he admits that last time he had a sever urinary tract infection he did not realize it either - pt will be treated with ceftriaxone 1 gm iv daily - will monitor blood work for improvement 3. Hypertension Plan - will continue with home doses of medication - will hold off medication before operation seeing how it is so close 4. Hearing loss Plan - pt has bilateral hearing devices - currently stable 5. BPH (benign prostatic hyperplasia) Plan - stable - will continue with flomax
--- NOTE | 2016-05-29 15:17 | Postoperative Progress Note ---
Postop Progress Note Preoperate Diagnosis: Fracture left femoral neck Postoperative Diagnosis: Same Surgeon: Rylan Velez MD Anesthesia: General ETT Findings: Fracture left hip Procedure: Percutaneous pinning left hip Complications? No Condition: Stable EBL: 5cc Blood Administered: 0 Specimen(s) removed? No Grafts or Implants? Yes Graft/Implant type: Screws left hip . (See nursing notes for details of grafts/implants)
--- NOTE | 2016-05-29 15:30 | DIAGNOSTIC IMAGING REPORT ---
PROCEDURE: XR HIP PINNING W/VIVIANE - LEFT INDICATION: PERC PINNING LEFT HIP TECHNIQUE: C-arm fluoroscopy provided to Dr. Velez for therapeutic spinal injection. Fluoroscopy time 2.13 minutes 73 mGy). COMPARISON: Hip films dated 05/29/2016 FINDINGS: AP and lateral C-arm views. 3-4 pins are across the femoral neck. Alignment is anatomic. IMPRESSION: 1. C-arm fluoroscopy for femoral neck fracture repair (performed by Dr. Velez
[2016-05-29 16:01] VITALS: BP 108/61
--- NOTE | 2016-05-29 16:11 | OPERATIVE REPORT ---
DATE OF SURGERY: 05/29/2016 SURGEON: DEV ALMAZAN MD PREOPERATIVE DIAGNOSIS: 1. Fracture, left femoral neck POSTOPERATIVE DIAGNOSIS: 1. Fracture, left femoral neck PROCEDURE PERFORMED: 1. Operative proposed was percutaneous pinning of the left femoral neck, replacement if necessary; the operation actually performed was a percutaneous pinning of the left femoral neck ESTIMATED BLOOD LOSS: Maybe 5 mL. COMPLICATION: None. PATHOLOGY SPECIMEN: None. SURGICAL TECHNIQUE: The patient was taken to the operating and was given general anesthetic. He was placed on the fracture table. With some internal rotation and just minimal traction, we were able to align the fracture very nicely, and sterile prepping and draping of the area about the lateral aspect of the left hip was performed. The patient had a small longitudinal incision, about 3, maybe 4 cm in length made. It was later extended another centimeter or so proximally. We placed a total of [address] in the proximal femur, going through the lateral cortex, up to the femoral neck, across the fracture site and in the femoral had, then over-drilling guide pin, countersinking for the heads of the screws. We measured with the depth gauge and placed the appropriate length of self-tapping screw in place. Once confirming the placement of the guide pins and the screws with the repeated AP and lateral projections of the fluoroscopy device, we could see that the screws were in good position. The fracture was nicely aligned and was adequately stabilized, and the guide pins were removed. The patient had closure of the wound after irrigating out thoroughly. We used 2- 0 Vicryl running suture for the subcutaneous layer and 3-0 Vicryl running suture for the subcuticular skin closure. It was dressed with Xeroform after injecting along the skin line with some local anesthetic, and then dressed with Xeroform and self sticky bandage. He was awakened. He was taken to the recovery room in stable condition.
[2016-05-29 16:15] VITALS: BP 108/77
[2016-05-29 16:30] VITALS: BP 117/65
[2016-05-29 16:45] VITALS: BP 119/81
[2016-05-29 17:00] VITALS: BP 116/67
[2016-05-30] VITALS (7 sets, daily range): BP systolic 112–151; BP diastolic 49–81
--- NOTE | 2016-05-30 03:19 | CONSULTATION REPORT ---
DATE OF CONSULTATION: 05/29/2016 CHIEF COMPLAINT: Left hip pain. HISTORY OF PRESENT ILLNESS: The patient was in his usual state of fair health when he suffered a fall yesterday and had pain in his left hip. He was brought to the emergency room today where x-rays were taken and confirmed the presence of a left hip fracture and he is being admitted for care of the same. MEDICAL/SURGICAL HISTORY: Is positive in that he does suffer from hypertension and has been treated for that. He says has not done too well with it and that his hypertension has not been very well controlled even though he is on multiple medications. He also has a history of having arthritis and has some arthritic pain in his right hip. He sais his left hip really was not bothering him prior to his current injury. He has by history atrial fibrillation. He has had some problems with his circulation. Had an ulceration of his right lower extremity at one time, which is now cleared. He has venous insufficiency. He is noted to have fatty liver disease. He suffers from Meniere disease. He has had a previous right wrist injury and also a previous right hip fracture which was treated with percutaneous pinning and went on to heal. He also suffers from chronic low back pain. His previous surgeries were for knee replacement surgery, the right hip surgery. MEDICATIONS: The latest medication list I have shows that he was takin. Flomax 0.4 mg twice a day. 2. Aspirin 325 mg daily. 3. Vitamin D 1000 units 2 pills a day. 4. Lasix 60 mg daily. 5. Vitamin E 400 units a day. 6. Lisinopril 20 mg a day. 7. Tenormin or atenolol 75 mg total daily. ALLERGIES: 1. SOCIAL HISTORY: The patient is a former smoker and drinker, but drinks no alcohol and is not smoking at present. FAMILY HISTORY: Noncontributory. REVIEW OF SYSTEMS: PHYSICAL EXAMINATION: HEEN: His head shows his head to be normocephalic, atraumatic. His ears: There is no drainage from the ear canals, but he is very severely hearing impaired and it is difficult to communicate with him even when you shout into his ears. Mouth and posterior oropharynx are clear. The tongue midline. His face is symmetrical. He is edentulous, has upper and lower plates in place. NECK: Is without jugular venous distention. CHEST: Is symmetrical. He has no tenderness over the cervical or thoracic spine, but does have some tenderness in the lumbar spine, but there is no palpable deformity and he says that the pain there is just from him lying in bed and it is no worsen then usual. MUSCULOSKEELTAL: In the upper extremities, there is no crepitation with range of motion, no pain with range of motion. No palpable deformities are present and he has active flexion and extension of the fingers distally and they are warm and pink. In the toes distally I cannot get him to hear well enough to get a cooperative neurovascular exam. He does have 1+ posterior tibial pulse. The feet are warm. The toes are pink. He has an external rotation deformity on the left side. LAB/IMAGING: X-ray showed him to have a fracture of the left femoral neck. There are a couple of screws that are present on the right side and repair of a previous right hip fracture. IMPRESSION: Fracture of the left proximal femur. PLAN: Will be for repair of the same. I talked to him about replacement. I would much rather do a repair. He is not in terribly good condition medically and did reasonably well after his right hip repair and I am thinking that is the best thing for him at this time and he agrees and his , too, and will plan to do that later today barring unforeseen complication or problem.
--- NOTE | 2016-05-30 15:33 | Progress Note ---
Subjective General Patient seen and examined. Patient has no complaints and is relatively pain free. Patient was able to work with physical therapy today. Patient is otherwise stable. Constitutional Denies: Fever, Chills, Sweats, Weakness, Malaise, Other. Eyes Denies: Pain, Vision Change, Conjunctival Inflammation, Eyelid Inflammation, Redness, Other. ENT Denies: Ear Pain, Ear Discharge, Nose Pain, Nasal Discharge, Nasal Congestion, Mouth Pain, Mouth Swelling, Throat Pain, Throat Swelling, Other. Respiratory Denies: Cough, Dry, SOB w/exertion, Wheezing, Hemoptysis, Pleuritic Pain, Sputum , Other. Cardiovascular Denies: Chest Pain, Palpitations, Orthopnea, PND, Edema, Light-headedness, Other. Gastrointestinal Denies: Nausea, Vomiting, Abdominal Pain, Diarrhea, Constipation, Melena, Hematochezia, Other. Genitourinary Denies: Dysuria, Frequency, Incontinence, Hematuria, Retention, Other. Musculoskeletal Leg Pain. Denies: Neck Pain, Shoulder Pain, Arm Pain, Back Pain, Hand Pain, Foot Pain, Other. Skin Denies: Rash, Lesions, Jaundice, Bruising, Other. Neurological Denies: Weakness, Numbness, Incoordination, Change in speech, Confusion, Seizures, Other. Physical Exam Vital Signs / I&Os Vital Signs Date Time Temp Pulse Resp B/P Pulse O2 O2 Flow FiO2 Ox Delivery Rate 05/30 1504 97.3 67 18 122/67 93 Room Air 05/30 1441 68 05/30 1141 97.5 92 18 112/68 96 Nasal 2.0 Cannula 05/30 0732 2.0 05/30 0712 97.3 73 18 139/81 96 Nasal 2.0 Cannula 05/30 0515 78 08 0511 78 18 121/49 97 Nasal 2.0 Cannula 05/30 0135 98.2 73 18 151/61 97 Nasal 2.0 Cannula 05/29 2130 70 I&O 05/29 0800 /07 1600 08 0000 Intake Total 600 Output Total 100 Balance 500 General Appearance Alert, Oriented X3, No acute distress HEENT Atraumatic, PERRLA, EOMI, Moist mucous membranes Lungs Clear to auscultation, Normal air movement Neck No JVD, No masses, No thyromegaly, 2+ carotid pulse wo bruit Cardiovascular Regular rate and rhythm, Normal S1 and S2, No murmurs, gallops, rubs Abdomen Soft, No tenderness, No guarding, No rebound, No masses, No hepatosplenomegaly Extremities No edema, Normal pulses, No tenderness, Strength = upper ext's, Strength = lower ext's Skin No Breakdown, No Significant Lesions Neurological Normal speech, Normal tone, Sensation intact, Cranial nerves intact , Strength 5/5 x4 ext's, No lateralizing signs, - gait abnormality secondary to decreased weight bearing Psych/Mental Status Mood normal LAB Results Laboratory Tests 05/30 05/30 05/30 0500 0520 0520 Chemistry Plasma Sodium (136 - 145 mmol/L) Cancelled 141 Plasma Potassium (3.5 - 5.1 mmol/L) Cancelled 4.6 Plasma Chloride (98 - 107 mmol/L) Cancelled 106 CO2 (Enzymatic) (21 - 32 mmol/L) Cancelled 27 BUN (7 - 18 mg/dL) Cancelled 29 Creatinine (0.6 - 1.3 mg/dL) Cancelled 1.5 Est GFR ( Amer) (mL/min) Cancelled 57.72 Est GFR (Non-Af Amer) (mL/min) Cancelled 47.62 Glucose (70 - 110 mg/dL) Cancelled 114 Plasma Calcium (8.5 - 10.1 mg/dL) Cancelled 8.2 Plasma Magnesium (1.8 - 2.4 mg/dL) 2.0 Total Bilirubin (0.0 - 1.0 mg/dL) 1.9 AST (15 - 37 U/L) 15 ALT (12 - 78 U/L) 16 Alkaline Phosphatase (46 - 116 U/L) 55 Total Protein (6.4 - 8.2 g/dL) 5.5 Albumin (3.3 - 5.0 g/dL) 2.9 Hematology WBC (4.5 - 11.5 K/uL) 25.5 RBC (4.50 - 5.90 M/uL) 3.58 Hgb (13.5 - 17.5 gm/dL) 11.2 Hct (41.0 - 53.0 %) 34.0 MCV (80 - 100 fL) 95 MCH (26 - 34 pg) 31 RDW (11.6 - 14.8 %) 15.6 Neut % (Auto) (50 - 75 %) 23 Cancelled Lymph % (Auto) (25 - 40 %) 68 Cancelled [place] % (Auto) (3 - 14 %) 0 Cancelled Eos % (Auto) (0 - 4 %) 2 Baso % (Auto) (0 - 2 %) 0 Band Neutrophils % (0 - 8 %) 7 Cancelled Metamyelocytes % (0 - 1 %) 0 Myelocytes (0 - 1 %) 0 Other Cell Type 0 Plt Count, EDTA (150 - 400 K/uL) 78 Anisocytosis (manual) 1+ PUBS MCHC (31 - 37 g/dL) 33 Assessment and Plan Problem List 1. Hip fracture, left Plan - s/p trocanteric repair - currently pain free - will continue with adequate pain control - seen by physical therapy today who recommennded that the patient go to a SNF - pt amenable to discharge plan 2. Urinary tract infection Plan - pt has persistent leukocytosis from urinary tract infection - will continue with ceftriaxone 1 gm IV daily - will continue to trend blood work 3. Hypertension Plan - controlled - will continue with blood pressure medications 4. Hearing loss Plan - stable 5. BPH (benign prostatic hyperplasia) Plan - c/w flomax - no problems with urination after surgery
--- NOTE | 2016-05-30 16:36 | Progress Note ---
Subjective General VSS Afebrile WBC 25.5 Platelets 78K BUN/Cr 29/1.5 Urine C/S + but no ID yet No c/o and no pain. Doing well with PT. Continue antibiotics for UTI Continue PT Recheck labs in am.
[2016-05-31 02:13] VITALS: BP 114/60
[2016-05-31 06:12] VITALS: BP 131/62
--- NOTE | 2016-05-31 07:25 | Progress Note ---
Subjective General VSS Afebrile WBC 25.6 Bun 31 Cr 1.2 No c/o this am. Hungry. Contine PT Check CBC in am Pathology review of peripheral blood smear for possible CLL.
[2016-05-31 11:09] VITALS: BP 110/72
[2016-05-31 14:38] VITALS: BP 130/70
[2016-05-31 18:30] VITALS: BP 132/79
--- NOTE | 2016-05-31 18:37 | Progress Note ---
Subjective General Patient seen and examined. Patient has no complaints and is doing well. Patient working with physical therapy appropriately. Constitutional Denies: Fever, Chills, Sweats, Weakness, Malaise, Other. Eyes Denies: Pain, Vision Change, Conjunctival Inflammation, Eyelid Inflammation, Redness, Other. ENT Denies: Ear Pain, Ear Discharge, Nose Pain, Nasal Discharge, Nasal Congestion, Mouth Pain, Mouth Swelling, Throat Pain, Throat Swelling, Other. Respiratory Denies: Cough, Dry, SOB w/exertion, Wheezing, Hemoptysis, Pleuritic Pain, Sputum , Other. Cardiovascular Denies: Chest Pain, Palpitations, Orthopnea, PND, Edema, Light-headedness, Other. Gastrointestinal Denies: Nausea, Vomiting, Abdominal Pain, Diarrhea, Constipation, Melena, Hematochezia, Other. Genitourinary Denies: Dysuria, Frequency, Incontinence, Hematuria, Retention, Other. Musculoskeletal Denies: Neck Pain, Shoulder Pain, Arm Pain, Back Pain, Hand Pain, Leg Pain, Foot Pain, Other. Skin Denies: Rash, Lesions, Jaundice, Bruising, Other. Physical Exam Vital Signs / I&Os Vital Signs Date Time Temp Pulse Resp B/P Pulse O2 O2 Flow FiO2 Ox Delivery Rate 06/01 1351 68 06/01 1054 98.4 52 18 129/69 97 Room Air 06/01 1050 98.1 69 18 156/78 06/01 0755 Room Air 0.0 06/01 0741 98.1 69 18 156/78 94 Room Air 06/01 0557 71 06/01 0255 98.2 71 17 152/83 93 Room Air 05/31 2330 Room Air 05/31 2253 97.9 55 18 135/68 93 Room Air 05/31 2149 82 05/31 1830 97.5 69 20 132/79 94 Room Air 05/31 1605 Room Air 2.0 05/31 1438 97.5 72 20 130/70 93 Room Air I&O 05/31 0800 05/31 1600 06/01 0000 Intake Total 1671 1763 Output Total 550 700 900 Balance -550 971 863 General Appearance Alert, Oriented X3, No acute distress HEENT Atraumatic, PERRLA, Moist mucous membranes, - hard of hearing Lungs Normal exam, Clear to auscultation, Normal air movement Cardiovascular Regular rate and rhythm, Normal S1 and S2, No murmurs, gallops, rubs Abdomen Soft, No tenderness, No guarding, No rebound, No masses, No hepatosplenomegaly Extremities No edema, Normal pulses, No tenderness, Strength = upper ext's, Strength = lower ext's, Celestina's sign negative Skin No Breakdown, - venous stasis Psych/Mental Status Mood normal LAB Results Laboratory Tests 06/01 06/01 0525 0525 Hematology WBC (4.5 - 11.5 K/uL) 26.0 RBC (4.50 - 5.90 M/uL) 3.42 Hgb (13.5 - 17.5 gm/dL) 10.7 Hct (41.0 - 53.0 %) 32.6 MCV (80 - 100 fL) 95 MCH (26 - 34 pg) 31 RDW (11.6 - 14.8 %) 15.2 Neut % (Auto) (50 - 75 %) 11 Cancelled Lymph % (Auto) (25 - 40 %) 82 Cancelled [place] % (Auto) (3 - 14 %) 0 Cancelled Eos % (Auto) (0 - 4 %) 4 Baso % (Auto) (0 - 2 %) 0 Band Neutrophils % (0 - 8 %) 3 Cancelled Metamyelocytes % (0 - 1 %) 0 Myelocytes (0 - 1 %) 0 Other Cell Type VARIANT LYMPHS Plt Count, EDTA (150 - 400 K/uL) 79 Hypochromic-Microcytic 1+ Anisocytosis (manual) 1+ PUBS MCHC (31 - 37 g/dL) 33 Assessment and Plan Problem List 1. Hip fracture, left Plan - stable - will look to discharge to rehab facility - c/w pain control 2. CLL (chronic lymphocytic leukemia) Plan - Pt has elevated wbc secondary to cll - patient has not opted for treatment and does not have any exacerbations of the disease - will follow up with a cabinet professional as an out patient 3. Hypertension Plan - c/w medications as prescribed
[2016-05-31 22:53] VITALS: BP 135/68
[2016-06-01 02:55] VITALS: BP 152/83
[2016-06-01 07:41] VITALS: BP 156/78
--- NOTE | 2016-06-01 08:08 | Progress Note ---
Subjective General Afeb WBC 26.0 No c/o except shoulder pain. 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 He also said today that he has CLL and has known about it for years. He is doing well and will transfer to rehab when bed available. Continue PT. DC IV. Continue Bactrim. He has Staph growing on his urine C/S and sens is still pending.
--- NOTE | 2016-06-01 08:11 | Provider's Discharge Care Plan ---
Problem, Goal, Plan Problem List 1. Hip fracture, left 2. Urinary tract infection 3. Hypertension 4. Hearing loss 5. BPH (benign prostatic hyperplasia) 6. CLL (chronic lymphocytic leukemia)
[2016-06-01 10:54] VITALS: BP 129/69
[2016-06-01 14:26] VITALS: BP 140/77
--- NOTE | 2016-06-01 14:30 | Discharge Summary ---
Discharge Summary Report Admit Date 05/29/16 Discharge Date 06/01/16 Admission Diagnosis left hip fracture Discharge Diagnosis left hip fracture Brief History Patient is a 80 year old male that is presenting with left hip for one day. Patient had been in his usual state of health when he suffered a mechanical fall after tripping over a hangar. Patient claims that the hangar was embedded in the carpet and he was unable to see it. Patient denies any pre-existing problems that would have caused him to fall. Patient was brought to the ER because of continual hip pain and it was found that the patient has a left hip intra- trochanteric fracture. Patient additionally was seen to have a white blood cell count of 30 with a signficant urinalysis. Patient will additionally be treated for a UTI while here. Patient is otherwise stable and doing well. Hospital Course Patient was admitted for fracture of the hip, patient underwent surgical correction and will be subsequently discharged to a rehab facility. Patient additionally was seen to have persistent leukocytosis on admission and during his stay, patient failed to mention he has active CLL. Patient lastly was found to have staph species in the urine. Given the growth pattern it is most likely staph saphroticus and did not require additional therapy. Patient will be discharged on all his home medications. General Appearance Alert, Oriented X3, No acute distress HEENT PERRLA, EOMI, Mucous membran moist/pink Lungs Normal air movement Cardiovascular Normal S1, Normal S2, No murmurs, Gallops, Rubs Abdomen Soft, No tenderness, No hepatospenomegaly Skin No Breakdown, No Significant Lesions Psych/Mental Status Mood NL Discharge Instructions/Meds - discharge to rehab - follow up with pmd at own convienience - take medications as prescribed
[2016-06-01] MEDS ORDERED: ENOXAPARIN40 MG/0.4 SC (14:36)
--- NOTE | 2016-06-03 07:06 | ED MAR SUMMARY ---
..... Medication Administration Record [facility] [address] [place] [address] Patient: GISELLE SESAY Visit ID: [id number] 80y, M Weight: 113.3 kg Height/Length: 75 in BMI: 31.2 ALLERGIES: Lorazepam Given 08:41 05/29/2016 Jv Morrow R.N. Medication Administered: PERCOCET [PO] (OXYCODONE-ACETAMINOPHEN), Dose: 1 tab 5/325 mg Tablets PO. Medication Ordered: Percocet PO 5/325 mg (HIGH ALERT MEDICATION, NOW).
--- NOTE | 2016-06-03 07:06 | ED MED RECONCILIATION SUMMARY ---
Patient: GISELLE SESAY Medication Reconciliation Report [facility] VisitID: [id number] [address] [place] [address] 80y, M Registration Date/Time: 05/29/2016 Weight: 113.3 kg Height/Length: 75 in. BMI: 31.2 ALLERGIES: Lorazepam The patient's Home Medications are listed below: THE FOLLOWING MEDICATIONS NEED TO BE RECONCILED: Aleve ASA Oral 325 mg PO q day Atenolol Oral 25 mg, 3x a day Furosemide Oral 60mg, daily Lisinopril Oral 5 mg, daily, 4 tabs by mouth daily Tamsulosin HCl Oral 0.4 mg, 2x a day Vitamin D3 Oral (1000 unit) 2 tablets, daily, 2000 units daily Vitamin E Oral (400 unit) 1 capsule, daily The source(s) of the original Home Medication information: patient EMS The following Medications were given to the patient in the Emergency Department: Percocet [PO] PO 1 tab, administered: 05/29/2016 8:41:00 AM The following Medications were prescribed to the patient: None.
--- NOTE | 2016-06-03 07:06 | ED MED RECONCILIATION SUMMARY ---
Patient: GISELLE SESAY Medication Reconciliation Report [facility] VisitID: [id number] [address] [place] [address] 80y, M Registration Date/Time: 05/29/2016 Weight: 113.3 kg Height/Length: 75 in. BMI: 31.2 ALLERGIES: Lorazepam The patient's Home Medications are listed below: THE FOLLOWING MEDICATIONS NEED TO BE RECONCILED: Aleve ASA Oral 325 mg PO q day Atenolol Oral 25 mg, 3x a day Furosemide Oral 60mg, daily Lisinopril Oral 5 mg, daily, 4 tabs by mouth daily Tamsulosin HCl Oral 0.4 mg, 2x a day Vitamin D3 Oral (1000 unit) 2 tablets, daily, 2000 units daily Vitamin E Oral (400 unit) 1 capsule, daily The source(s) of the original Home Medication information: patient EMS The following Medications were given to the patient in the Emergency Department: Percocet [PO] PO 1 tab, administered: 05/29/2016 8:41:00 AM The following Medications were prescribed to the patient: None.
--- NOTE | 2016-06-03 07:06 | ED MAR SUMMARY ---
..... Medication Administration Record [facility] [address] [place] [address] Patient: GISELLE SESAY Visit ID: [id number] 80y, M Weight: 113.3 kg Height/Length: 75 in BMI: 31.2 ALLERGIES: Lorazepam Given 08:41 05/29/2016 Jv Morrow R.N. Medication Administered: PERCOCET [PO] (OXYCODONE-ACETAMINOPHEN), Dose: 1 tab 5/325 mg Tablets PO. Medication Ordered: Percocet PO 5/325 mg (HIGH ALERT MEDICATION, NOW).
== END 2016-06-01 15:50 | DRG 481 ==
LOC: ED SRH 08:15 → TRANS SRH 09:19 → ACUTE2 SRH 12:18
PROVIDERS: Orthopaedic Surgery; ADMIT Student in an Organized Health Care Education/Training Program
PROC: 0QS734Z Reposition Left Upper Femur with Internal Fixation Device, Percutaneous Approach (ICD-10-PCS; principal; 2016-05-29 13:30)
DX: S72.012A Unspecified intracapsular fracture of left femur, initial encounter for closed fracture (principal); W01.0XXA Fall on same level from slipping, tripping and stumbling without subsequent striking against object, initial encounter; Y93.01 Activity, walking, marching and hiking; N39.0 Urinary tract infection, site not specified; B95.7 Other staphylococcus as the cause of diseases classified elsewhere; C91.10 Chronic lymphocytic leukemia of B-cell type not having achieved remission; Y92.009 Unspecified place in unspecified non-institutional (private) residence as the place of occurrence of the external cause; Y99.8 Other external cause status; N40.0 Benign prostatic hyperplasia without lower urinary tract symptoms; I48.91 Unspecified atrial fibrillation; I12.9 Hypertensive chronic kidney disease with stage 1 through stage 4 chronic kidney disease, or unspecified chronic kidney disease; N18.9 Chronic kidney disease, unspecified